=== PATIENT | female | born 1990 | race Caucasian/White ===

== ENCOUNTER 2019-06-17 23:42 | Emergency (ER) | payer SELFPAY ==
[~2019-06-17] VITALS: Ht 170.2 cm; Wt 91.4 kg
[2019-06-18] VITALS: BP 149/109
[2019-06-18] MEDS ORDERED: PHEN15CA PO (00:11)
== END 2019-06-18 03:30 | disposition left against medical advice (07) ==
LOC: EMS 23:46
DX: M25.562 Pain in left knee (principal); Z53.21 Procedure and treatment not carried out due to patient leaving prior to being seen by health care provider